=== PATIENT | male | born 1950 | race Caucasian/White ===

== ENCOUNTER 2019-03-08 09:00 | Outpatient (REF) | payer MEDICARE, SELFPAY ==
[2019-03-08 19:59] LABS: Anion Gap 7.5 mmol/L (3-11); BUN 12 mg/dL (7-18); CO2 29.5 mmol/L (21.0-32.0); CREATININE 0.96 mg/dL (0.70-1.30); Calcium 9.3 mg/dL (8.5-10.1); Chloride 105 mmol/L (98-107); Cholesterol 192 mg/dL (50-200); Glucose 109 mg/dL (70-100); HDL Cholesterol 66 mg/dL (40-60); LDL CHOLESTEROL 116 mg/dL (<100); Sodium 142 mmol/L (136-145); Triglyceride 51 mg/dL (30-150)
[2019-03-10 10:01] LABS: PSA, Screening 1.3 ng/ml (0-4.5)
== END 2019-03-08 09:20 ==
LOC: NCHCN 09:00
PROVIDERS: PCP Nurse Practitioner Family; Visit Provider Nurse Practitioner Family
DX: I10 Essential (primary) hypertension (principal); I48.0 Paroxysmal atrial fibrillation; K21.9 Gastro-esophageal reflux disease without esophagitis; G47.30 Sleep apnea, unspecified; G47.00 Insomnia, unspecified; R73.01 Impaired fasting glucose; N40.0 Benign prostatic hyperplasia without lower urinary tract symptoms; Z12.5 Encounter for screening for malignant neoplasm of prostate
CPT/HCPCS: 80048; 80061; 83721; 84153

== ENCOUNTER 2019-10-03 10:25 | Outpatient (CLI) | payer MEDICARE, SELFPAY | END 2019-10-03 10:45 | PROVIDERS: PCP Nurse Practitioner Family; Visit Provider Internal Medicine Cardiovascular Disease | DX: I48.91 Unspecified atrial fibrillation (principal); Z79.01 Long term (current) use of anticoagulants | CPT/HCPCS: 99204; 99215; 93005; 93010 ==

== ENCOUNTER 2020-07-28 01:24 | Emergency (ER) | payer MEDICARE, SELFPAY ==
[2020-07-28 01:27] VITALS: BP 144/92; PULSE 69; RESP 16; TEMP 36.6; O2SAT 98
--- NOTE | 2020-07-28 01:30 | RT.EKG_ITS ---
APPROVED REPORT Exam: Resting ECG Patient Location: E HR:67 bpm ECG Measurements Heart Rate 67 AXIS UT 219 P 51 QRSd 88 QRS 7 QT 416 T 37 QTc 439 Conclusion Sinus rhythm...normal P axis, V-rate 60- 99 Borderline prolonged UT interval...UT >212, V-rate 50- 90 Probable left atrial enlargement...P >50mS, <-0.10mV V1. Sinus. Prolonged UT interval. No STEMI. Nondiagnostic.
--- NOTE | 2020-07-28 01:30 | DI.RAD_ITS ---
EXAM: XR CHEST 2V PA LATERAL CLINICAL HISTORY: GERD symptoms. r/o acute disease TECHNIQUE: 2D digital imaging was performed. COMPARISON: No exams were available for comparison FINDINGS: MEDIASTINUM: Normal. HEART: Normal. PULMONARY VASCULATURE: Normal. LUNGS: Mildly increased interstitial markings. No focal consolidation. PLEURAL SPACE: No pleural effusion or pneumothorax. BONE:Mild degenerative disc changes. OTHER FINDINGS:Normal. IMPRESSION: No acute pulmonary findings. DATA REPOSITORY: RADIATION DOSE DELIVERED:
--- NOTE | 2020-07-28 01:49 | ED.GENADUL_ITS ---
Discharge Plan Disposition Patient Disposition: HOME Condition: Improving Discharge Details Chief Complaint: Abd Prob Clinical Impression: Nausea and vomiting Primary Care Provider: Мария Loo ED Provider: Diana Garcia Home Meds and New Rx's Prescriptions: Continued apple cider vinegar 600 mg capsule 600 mg PO DAILY PRNRF: 0 ranitidine HCl [Acid Stamping Operator (ranitidine)] 150 mg tablet 150 mg PO DAILY PRNRF: 0 metoprolol succinate 100 MG tablet extended release 24 hr 100 mg PO DAILY RF: 0 zolpidem [Ambien] 5 MG tablet 5 mg PO HS PRNRF: 0 Xarelto 20 mg tablet 20 mg PO DAILY Qty: 30 RF: 3 Discharge Instructions Instructions: Gastroesophageal Reflux Disease (ED), Acute Nausea and Vomiting (ED) Additional Instructions: Drink plenty of fluids and get plenty of rest. Take Zofran as needed and directed for nausea and vomiting. Take an [id number] acid-reducing medication such as Pepcid or Prilosec or Prevacid daily for the next 2 weeks. Avoid common trigger foods for your reflux. Follow-up with your primary care doctor in 1 week. If your symptoms persist or worsen, you could consider follow-up with general surgery for evaluation and consideration for upper endoscopy. Return to the emergency department with any worsening or new concerning symptoms. Referrals: Cheryl Kan MD [ [facility] STAFF PHYSICIAN] - Discharge Data Discharge Date/Time-TO BE ENTERED AT DEPARTURE: 07/28/20 03:45 Discharge Physician: Diana Garcia Medical Decision Making 0135 -- 70-year-old male with a history of GERD and paroxysmal A. fib on Xarelto presents with multiple episodes of vomiting after eating pork last night. Also complains of indigestion but denies chest pain, shortness of breath, abdominal pain. Patient has had multiple episodes before after eating chicken or pork. Denies sensation of food bolus impaction ED notes rate of 67, sinus with no acute ST or T wave ischemic changes. He is noted to be frequently swallowing and complaining of nausea during evaluation. He spit up clear mucus. His abdomen is soft and nontender. His lungs are clear. Appears more consistent with GI rather than cardiac etiology. Considering patient's age and history, will obtain a cardiac work-up, give a dose of Pepcid, Zofran and GI cocktail and reassess. 0330 -- Labs and imaging reviewed and unremarkable. Troponin negative. Chest x-ray negative for acute disease. Patient reassessed and he admits to significant relief. He was able to drink water and denied any symptoms and is requesting to go home. Patient given Zofran to go. Advised to follow up with the primary care doctor for re-evaluation. Usual and customary return precautions given prior to discharge. Medical Records Medical records reviewed: Yes I reviewed the patient's medical records. Imaging Data Radiologic Study: Radiologist's impression: XR Chest, 2 Views Exam date and time: 07/28/2020 2:44 AM Age: 70 years old Clinical indication: Other: Gerd symptoms; Additional info: R/O acute disease TECHNIQUE: Imaging protocol: XR of the chest Views: 2 views. COMPARISON: No relevant prior studies available. FINDINGS: Lungs: Chronic appearing interstitial prominence. No consolidation. Pleural space: No pleural effusion. No pneumothorax. Heart/Mediastinum: No cardiomegaly. Bones/joints: Unremarkable. IMPRESSION: No radiographic evidence for pneumonia Presumed chronic interstitial prominence bilaterally. Comparison with prior images would be helpful Lab Data Lab results reviewed: Yes I reviewed the patient's lab results. Labs: Laboratory Tests Range/Units 07/28/20 07/28/20 01:45 01:45 WBC (4.4-10.8) 10^3/uL 9.70 RBC (4.36-5.78) 10^6/uL 5.18 Hgb (13.5-17.5) g/dL 15.2 Hct (40.0-50.0) % 45.3 MCV (80-95) fL 87.5 MCH (27.0-33.0) pg 29.3 MCHC (32.0-36.0) % 33.6 RDW (11.8-14.1) % 12.8 Plt Count (130-400) 10^3/uL 166 MPV (8.0-11.0) fL 10.8 Immature Gran % 0.2 Neutrophils % 72.4 Lymphocytes % 19.3 Monocytes % 7.5 Eosinophils % 0.4 Basophils % 0.2 Nucleated RBC % % 0 Absolute Neutrophils (1.2-6.7) 10^3/uL 7.02 H Absolute Lymphocytes (1.2-3.4) 10^3/uL 1.87 Absolute Monocytes (0.1-0.8) 10^3/uL 0.73 Absolute Eosinophils (0.0-0.7) 10^3/uL 0.04 Absolute Basophils (0.0-0.2) 10^3/uL 0.02 Sodium (136-145) mmol/L 141 Potassium (3.5-5.1) mmol/L 3.9 Chloride (98-107) mmol/L 104 Carbon Dioxide (21.0-32.0) mmol/L 27.8 Anion Gap (3-11) mmol/L 9.2 BUN (7-18) mg/dL 17 Creatinine (0.70-1.30) mg/dL 1.33 H Estimated GFR/1.73 m2 (mL/min/1.73m2) 53.16 Glucose (74-106) mg/dL 121 H Calcium (8.5-10.1) mg/dL 9.4 Magnesium (1.8-2.4) mg/dL 2.0 Total Bilirubin (0.2-1.0) mg/dL 1.0 AST (15-37) U/L 54 H ALT (16-63) U/L 31 Alkaline Phosphatase (46-116) U/L 68 Troponin I (<0.06) ng/mL < 0.05 Total Protein (6.4-8.2) g/dL 7.7 Albumin (3.4-5.0) g/dL 4.2 Lipase (73-393) U/L 79 ECG Data Attestation: I personally reviewed and interpreted this ECG (s) as follows: Interpretation: rate of 67, sinus. no acute ST elevation or depression. OK 219. QRS 88. QTc 439. HPI General Mode of arrival: ambulatory . Date/Time Provider Initiated Documentation: 07/28/20 01:25 . Limitations to Documentation: no limitations . Information obtained by: patient . HPI Narrative: Patient is a 70-year-old male with a history of chronic GERD and atrial fibrillation on Xarelto who presents with multiple episodes of vomiting and feeling of gas and indigestion since eating pork at 8 PM last night. Patient states his vomit was initially food and now is mainly clear and white spit up. He states he has been unable to keep down liquids or food since this started as he feels like when he tries to swallow water it comes right back up. He still admits to nausea but denies any chest pain, shortness of breath, abdominal pain, fever, cough. He denies any sensation of food being stuck in his throat. He states he usually develops this nausea and indigestion feeling sometimes associated with vomiting after eating pork or chicken. Related Data Home Medications Medication Instructions Recorded Confirmed metoprolol succinate 100 mg PO DAILY tab-cap 02/15/17 07/28/20 zolpidem [Ambien] 5 mg PO HS PRN 03/31/17 07/28/20 apple cider vinegar 600 mg capsule 600 mg PO DAILY PRN 10/03/19 07/28/20 ranitidine HCl 150 mg tablet 150 mg PO DAILY PRN 10/03/19 07/28/20 rivaroxaban 20 mg tablet 20 mg PO DAILY #30 tab 01/15/20 07/28/20 Previous Rx's Medication Instructions Recorded rivaroxaban 20 mg tablet 20 mg PO DAILY #30 tab 01/15/20 Allergies Allergy/AdvReac Type Severity Reaction Status Date / Time No Known Allergies Allergy Verified 10/03/19 10:23 General Stated Complaint: Abd Prob HARRIETT: 3 Review of Systems All systems reviewed & are unremarkable except as noted in HPI and below Constitutional Constitutional: Reports as per HPI, Denies chills and Denies fever(s) Eyes Eyes: Denies blurry vision ENT Ears, Nose, Mouth, and Throat: Denies dizziness, Denies sore throat and Denies throat swelling Cardiovascular Cardiovascular: Denies chest pain and Denies dyspnea Respiratory Respiratory: Denies cough and Denies dyspnea Gastrointestinal Gastrointestinal: Denies abdominal pain, Denies diarrhea and Reports vomiting Genitourinary Genitourinary: Denies hematuria and Denies dysuria Musculoskeletal Musculoskeletal: Denies back pain and Denies numbness Integumentary/Breasts Skin/Breast: Denies lesions and Denies rash Neurologic Neurologic: Denies dizziness, Denies localized weakness and Denies numbness Allergic/Immunologic Allergic/Immunologic: Denies throat swelling [facility] Medical History (Updated 07/28/20 @ 03:28 by Diana Garcia DO) Atrial fibrillation (Chronic) GERD (gastroesophageal reflux disease) (Chronic) Paroxysmal atrial fibrillation (Acute) Surgical History H/O inguinal hernia repair (Acute) Social History Smoking/Tobacco Use Status: Never Alcohol Intake: current Alcohol Intake frequency: a few times a week Alcohol type: beer and wine Drug use: Never What type of physical activity do you participate in: walking Duration: 30-45 minutes/day Frequency: 1-2 times per week Do you feel safe at home: Yes Do you feel safe in your relationship?: Yes Exam Const General: cooperative and no acute distress Orientation: alert, awake and oriented x3 HENMT Head: normal to inspection Face and sinus: normal facial exam Eyes General: appearance normal, both eyes and all related structures EOM: EOM intact bilaterally Neck Neck: normal visual inspection and No submandibular swelling Lymphatic: no lymphadenopathy noted Chest Chest: normal inspection of the chest and no tenderness Resp Effort & Inspection: normal respiratory effort, able to speak in complete sentences and other Auscultation: clear to auscultation bilaterally Cardio Rate: regular rate Rhythm: regular rhythm GI Inspection: normal to inspection and other (Continual swallowing noted, occasional spit up of clear mucus) Palpation: soft, not firm, not rigid and nontender Auscultation: normal bowel sounds Skin General skin exam: no rashes or lesions noted Neuro General: patient alert, patient awake and patient oriented x3 Cognition: normal cognition Speech: speech normal Motor: muscle tone normal throughout Sensory Exam: no sensory deficits noted Extrem General: normal to inspection, full ROM, capillary refill normal, no calf t enderness bilaterally and no edema Psych Appearance: grossly normal Mental Status: mental status grossly normal Speech and Movement: speech and movement normal Affect: normal affect Course Vital Signs Vital signs: Vital Signs Temperature 97.9 F 07/28/20 01:27 Pulse 69 07/28/20 01:27 Respiratory Rate 16 07/28/20 01:27 Blood Pressure 144/92 H 07/28/20 01:27 Pulse Oximetry 98 07/28/20 01:27 Temperature 97.9 F 07/28/20 01:27 Temperature Source Skin 07/28/20 01:27 Pulse 69 07/28/20 01:27 Respiratory Rate 16 07/28/20 01:27 Respiratory Effort 07/28/20 01:34 Blood Pressure 144/92 H 07/28/20 01:27 Blood Pressure Position Sitting 07/28/20 01:27 Pulse Oximetry 98 07/28/20 01:27 Oxygen Delivery Method Room Air 07/28/20 01:27 Oxygen Flow Rate 0 07/28/20 01:27 Pain Level 5 07/28/20 01:27 Comment 07/28/20 01:27
[2020-07-28] MEDS: FAMOTIDINE 20 MG/50 ML BAG 200 MG IVPB (02:01)
[2020-07-28] MEDS: Normal Saline 500 ML IV (02:01)
[2020-07-28] MEDS: Ondansetron 4 MG/2 ML VIAL IVP (02:01)
[2020-07-28 02:05] LABS: Abs Immature Grans 0.02 10^3/uL (0.0-0.06); Absolute Basophil Count 0.02 10^3/uL (0.0-0.2); Absolute Eosinophil Count 0.04 10^3/uL (0.0-0.7); Absolute Lymphocyte Count 1.87 10^3/uL (1.2-3.4); Absolute Monocyte Count 0.73 10^3/uL (0.1-0.8); Absolute Neutrophil Count 7.02 10^3/uL (1.2-6.7); Basophils % 0.2; Eosinophils % 0.4; HCT 45.3 % (40.0-50.0); HGB 15.2 g/dL (13.5-17.5); Immature Grans % 0.2; Lymphocytes % 19.3; MCH 29.3 pg (27.0-33.0); MCHC 33.6 % (32.0-36.0); MCV 87.5 fL (80-95); MPV 10.8 fL (8.0-11.0); Monocytes % 7.5; Neutrophils % 72.4; Nucleated RBC 0 %; Platelet Count 166 10^3/uL (130-400); RBC 5.18 10^6/uL (4.36-5.78); RDW 12.8 % (11.8-14.1); RDW-SD 41.5 fL
[2020-07-28 02:18] LABS: ALT 31 U/L (16-63); AST 54 U/L (15-37); Albumin 4.2 g/dL (3.4-5.0); Alkaline Phosphatase 68 U/L (46-116); Anion Gap 9.2 mmol/L (3-11); BUN 17 mg/dL (7-18); CO2 27.8 mmol/L (21.0-32.0); CREATININE 1.33 mg/dL (0.70-1.30); Calcium 9.4 mg/dL (8.5-10.1); Chloride 104 mmol/L (98-107); Estimated GFR 53.16 (mL/min/1.73m2); Glucose 121 mg/dL (74-106); Lipase 79 U/L (73-393); Potassium 3.9 mmol/L (3.5-5.1); Sodium 141 mmol/L (136-145); Total Protein 7.7 g/dL (6.4-8.2)
[2020-07-28 02:24] LABS: Troponin I < 0.05 ng/mL (<0.06)
--- NOTE | 2020-07-28 02:27 | NUR.NOTE ---
Steff PO fluids. med with GI cocktail a/o.
--- NOTE | 2020-07-28 02:54 | DI.VRAD_ITS ---
PROCEDURE INFORMATION: Exam: XR Chest, 2 Views Exam date and time: 07/28/2020 2:44 AM Age: 70 years old Clinical indication: Other: Gerd symptoms; Additional info: R/O acute disease TECHNIQUE: Imaging protocol: XR of the chest Views: 2 views. COMPARISON: No relevant prior studies available. FINDINGS: Lungs: Chronic appearing interstitial prominence. No consolidation. Pleural space: No pleural effusion. No pneumothorax. Heart/Mediastinum: No cardiomegaly. Bones/joints: Unremarkable. IMPRESSION: No radiographic evidence for pneumonia Presumed chronic interstitial prominence bilaterally. Comparison with prior images would be helpful Dictated and Authenticated by: Blue Nevarez MD. Ordering:GERMÁN Ortiz MD
[2020-07-28] MEDS: Ondansetron O.D.T. 4 MG TABEF, 3 TABS/BTL PO (03:46)
[2020-07-28 03:47] VITALS: BP 112/66; PULSE 58; RESP 16; TEMP 36.7; O2SAT 96
== END 2020-07-28 03:45 | disposition home or self-care (01) ==
PROVIDERS: Emergency Provider Physician Assistant; PCP Nurse Practitioner Family
DX: R11.2 Nausea with vomiting, unspecified (principal); K21.9 Gastro-esophageal reflux disease without esophagitis
CPT/HCPCS: 36415; 80053; 83690; 93005; 96361; 96365; 96375; 99285; 71046; 83735; 84484; 85025; 93010; J2405

== ENCOUNTER → 2020-09-03 11:30 | Outpatient (BNVA) | payer MEDICARE, SELFPAY | PROVIDERS: PCP Nurse Practitioner Family; Referring Provider Nurse Practitioner Family; Visit Provider Internal Medicine Cardiovascular Disease | DX: I48.0 Paroxysmal atrial fibrillation (principal); Z01.810 Encounter for preprocedural cardiovascular examination; Z79.01 Long term (current) use of anticoagulants | CPT/HCPCS: 99214 ==

== ENCOUNTER 2021-03-12 22:46 | Outpatient (REF) | payer MEDICARE, SELFPAY ==
[2021-03-12 15:24] LABS: HCT 44.4 % (40.0-50.0); HGB 14.8 g/dL (13.5-17.5); MCH 29.8 pg (27.0-33.0); MCHC 33.3 % (32.0-36.0); MCV 89.5 fL (80-95); MPV 11.7 fL (8.0-11.0); Platelet Count 147 10^3/uL (130-400); RBC 4.96 10^6/uL (4.36-5.78); RDW 13.2 % (11.8-14.1); RDW-SD 43.4 fL; WBC 5.16 10^3/uL (4.4-10.8)
[2021-03-12 16:20] LABS: Anion Gap 8.7 mmol/L (3-11); BUN 15 mg/dL (7-18); CO2 28.3 mmol/L (21.0-32.0); CREATININE 1.3 mg/dL (0.70-1.30); Calcium 9.4 mg/dL (8.5-10.1); Calculated LDL 88 mg/dL (<100); Chloride 107 mmol/L (98-107); Cholesterol 167 mg/dL (<200); Estimated GFR 54.42 (mL/min/1.73m2); Glucose 123 mg/dL (74-106); HDL Cholesterol 67 mg/dL (40-60); Potassium 5.3 mmol/L (3.5-5.1); Sodium 144 mmol/L (136-145); Triglyceride 60 mg/dL (<150)
[2021-03-12 22:38] LABS: PSA, Screening 1.9 ng/mL (0.0-6.5)
== END 2021-03-12 22:47 | disposition home or self-care (01) ==
LOC: NCHCN 22:46
PROVIDERS: PCP Nurse Practitioner Family; Visit Provider Nurse Practitioner Family
DX: I10 Essential (primary) hypertension (principal); I48.0 Paroxysmal atrial fibrillation; Z79.01 Long term (current) use of anticoagulants; R73.01 Impaired fasting glucose; N40.0 Benign prostatic hyperplasia without lower urinary tract symptoms; Z12.5 Encounter for screening for malignant neoplasm of prostate
CPT/HCPCS: 80048; 80061; 84153; 85027

== ENCOUNTER → 2021-10-10 10:25 | Outpatient (BNVA) | payer MEDICARE, SELFPAY | PROVIDERS: PCP Nurse Practitioner Family; Referring Provider Nurse Practitioner Family; Visit Provider Internal Medicine Cardiovascular Disease | DX: I48.0 Paroxysmal atrial fibrillation (principal); Z79.01 Long term (current) use of anticoagulants | CPT/HCPCS: 99213 ==

== ENCOUNTER 2021-10-30 02:13 | Outpatient (CLI) | payer MEDICARE, SELFPAY ==
--- NOTE | 2021-10-30 | DI.US_ITS ---
Exam(s) US RENAL EXAM: US RENAL CLINICAL HISTORY: INCONTINENCE OF URINE N39.41 URINARY FREQUENCY R35.0 R/O STRUCTURAL TECHNIQUE: Ultrasound of both kidneys performed using standard protocol. COMPARISON: No exams were available for comparison FINDINGS: RIGHT KIDNEY: Measures 11.8 cm in length. No cysts evident. Normal cortical thickness and corticomedullary differen tiation .No solid masses There is a small hyperechoic focus measuring 3 millimeters in the lower pole, possibly calculus. LEFT KIDNEY: Measures 11.3 cm in length. Is a 1.0 x 1.2 cm cyst towards the lower pole. Normal cortical thicknes s and corticomedullary differentiaion. No solids masses. No intrarenal calculi nor hydonephrosis. URINARY BLADDER: Prevoid volume is 112 cc Postvoid volume is 8 cc No evidence of bladder mass nor diverticuli. Ureterovesical jets: Both identified and appear symmetrical IMPRESSION: 1. Possible nonobstructive 3 millimeter calculus in lower pole of the right kidney. No hydronephros is on either side 2. Small benign cyst in the left kidney measuring 1.2 cm. No solid renal masses. Bladder findings as above. DATA REPOSITORY:
== END 2021-10-30 02:33 ==
PROVIDERS: PCP Nurse Practitioner Family; Visit Provider Nurse Practitioner Family
DX: N39.41 Urge incontinence (principal); R35.0 Frequency of micturition; N28.1 Cyst of kidney, acquired; N20.0 Calculus of kidney
CPT/HCPCS: 76770

== ENCOUNTER → 2021-11-27 10:32 | Outpatient (BNVA) | payer MEDICARE, SELFPAY | PROVIDERS: PCP Nurse Practitioner Family; Referring Provider Nurse Practitioner Family; Visit Provider Nurse Practitioner Gerontology | DX: N32.81 Overactive bladder (principal); I10 Essential (primary) hypertension | CPT/HCPCS: 99214 ==

== ENCOUNTER → 2022-01-22 15:03 | Outpatient (BNVA) | payer MEDICARE, SELFPAY | PROVIDERS: PCP Nurse Practitioner Family; Referring Provider Nurse Practitioner Family; Visit Provider Nurse Practitioner Gerontology | DX: R35.0 Frequency of micturition (principal) | CPT/HCPCS: 99214 ==

== ENCOUNTER → 2022-02-26 14:39 | Outpatient (BNVA) | payer MEDICARE, SELFPAY | PROVIDERS: PCP Nurse Practitioner Family; Referring Provider Nurse Practitioner Family; Visit Provider Nurse Practitioner Gerontology | DX: R35.0 Frequency of micturition (principal) | CPT/HCPCS: 51798; 99214 ==

== ENCOUNTER 2022-04-30 02:15 | Outpatient (CLI) | payer MEDICARE, SELFPAY ==
[2022-04-30 08:39] LABS: ALT 41 U/L (16-63); AST 58 U/L (15-37); Albumin 3.8 g/dL (3.4-5.0); Alkaline Phosphatase 70 U/L (46-116); Anion Gap 8.2 mmol/L (3-11); BUN 16 mg/dL (7-18); Bilirubin, Total 0.8 mg/dL (0.2-1.0); CO2 28.8 mmol/L (21.0-32.0); CREATININE 1.2 mg/dL (0.70-1.30); Calcium 8.6 mg/dL (8.5-10.1); Calculated LDL 95 mg/dL (<100); Chloride 104 mmol/L (98-107); Cholesterol 170 mg/dL (<200); Estimated GFR 59.51 (mL/min/1.73m2); Glucose 112 mg/dL (74-106); HDL Cholesterol 64 mg/dL (40-60); Potassium 4.7 mmol/L (3.5-5.1); Sodium 141 mmol/L (136-145); Total Protein 7.2 g/dL (6.4-8.2); Triglyceride 57 mg/dL (<150)
[2022-04-30 18:21] LABS: PSA, Screening 1.8 ng/mL (<=6.5)
== END 2022-04-30 02:16 | disposition home or self-care (01) ==
LOC: LBO 02:15
PROVIDERS: PCP Nurse Practitioner Family; Visit Provider Nurse Practitioner Family
DX: R73.03 Prediabetes (principal); I48.0 Paroxysmal atrial fibrillation; I10 Essential (primary) hypertension; Z12.5 Encounter for screening for malignant neoplasm of prostate; Z80.42 Family history of malignant neoplasm of prostate; R35.0 Frequency of micturition; Z79.01 Long term (current) use of anticoagulants
CPT/HCPCS: 36415; 80053; 80061; 84153

== ENCOUNTER → 2022-07-16 14:50 | Outpatient (BNVA) | payer MEDICARE, SELFPAY | PROVIDERS: PCP Nurse Practitioner Family; Referring Provider Nurse Practitioner Family; Visit Provider Nurse Practitioner Gerontology | DX: R35.0 Frequency of micturition (principal) | CPT/HCPCS: 51798; 99214 ==

== ENCOUNTER 2022-12-31 01:11 | Outpatient (CLI) | payer MEDICARE, SELFPAY ==
--- NOTE | 2022-12-31 | DI.US_ITS ---
Exam(s) US ABDOMEN LIMITED EXAM: US ABDOMEN LIMITED CLINICAL HISTORY: RUQ ABD PAIN, R10.11,DULL ACHE TECHNIQUE: Ultrasound abdomen performed using standard protocol. COMPARISON: US US RENAL from 10/30/2021 FINDINGS: There is no ascites evident. LIVER: There is a benign-appearing small 1.1 x 0.8 x 0.9 cm cyst evident in the right hepatic lobe. No solid liver masses. No obvious steatosis. GALLBLADDER/BILIARY: There are no gallstones. No gallbladder wall edema nor pericholecystic fluid. The common hepatic duct isdifficult to assess because of bowel gas in this region. May be slightly d ilated. PANCREAS: There is no evidence of pancreatic mass nor dilatation of the pancreatic duct. RIGHT KIDNEY:No cyst or solid mass. There is a small 3 millimeter echogenic focus in the inferior po le which may be nonobstructive small calculus at this level. IMPRESSION: 1. No evidence of a cholelithiasis. Common hepatic duct is somewhat difficult to evaluate here colleen use of bowel gas. 2. Small 11 millimeter benign cyst in the right hepatic lobe. No other focal hepatic findings. 3. Small 3 millimeter nonobstructive calculus in the inferior pole of right kidney DATA REPOSITORY:
== END 2022-12-31 01:31 ==
LOC: DI 01:12
PROVIDERS: PCP Nurse Practitioner Family; Visit Provider Nurse Practitioner Family
DX: K76.9 Liver disease, unspecified (principal); N20.0 Calculus of kidney
CPT/HCPCS: 76705

== ENCOUNTER → 2023-02-11 14:18 | Outpatient (BNVA) | payer MEDICARE, SELFPAY | PROVIDERS: PCP Nurse Practitioner Family; Visit Provider Nurse Practitioner Gerontology | DX: R35.0 Frequency of micturition (principal) | CPT/HCPCS: 51798; 99213 ==

== ENCOUNTER 2023-04-15 09:45 | Outpatient (REF) | payer MEDICARE, SELFPAY ==
[2023-04-15 15:05] LABS: HCT 43.6 % (40.0-50.0); HGB 14.7 g/dL (13.5-17.5); MCH 29.9 pg (27.0-33.0); MCHC 33.7 % (32.0-36.0); MCV 89 fL (80-95); MPV 11.4 fL (8.0-11.0); Platelet Count 130 10^3/uL (130-400); RBC 4.91 10^6/uL (4.36-5.78); RDW-SD 42.4 fL; WBC 4.16 10^3/uL (4.4-10.8)
[2023-04-15 15:33] LABS: ALT 51 U/L (16-63); AST 62 U/L (15-37); Albumin 3.7 g/dL (3.4-5.0); Alkaline Phosphatase 71 U/L (46-116); Anion Gap 4.2 mmol/L (3-11); BUN 12 mg/dL (7-18); Bilirubin, Total 0.8 mg/dL (0.2-1.0); CO2 29.8 mmol/L (21.0-32.0); CREATININE 0.9 mg/dL (0.70-1.30); Chloride 107 mmol/L (98-107); Estimated GFR 90.18 (mL/min/1.73m2); Glucose 115 mg/dL (74-106); HDL Cholesterol 70 mg/dL (40-60); LDL CHOLESTEROL 101 mg/dL (<100); Potassium 4.6 mmol/L (3.5-5.1); Sodium 141 mmol/L (136-145); Total Protein 7.3 g/dL (6.4-8.2)
[2023-04-15 15:47] LABS: Creatine Kinase 104 U/L (39-308)
[2023-04-15 16:05] LABS: Hemoglobin A1C 5.9 % (<5.7)
== END 2023-04-15 09:46 | disposition home or self-care (01) ==
LOC: NCHCN 09:45
PROVIDERS: PCP Nurse Practitioner Family; Visit Provider Nurse Practitioner Family
DX: I10 Essential (primary) hypertension (principal); R73.03 Prediabetes; R79.89 Other specified abnormal findings of blood chemistry
CPT/HCPCS: 80053; 82550; 83721; 85027; 83036; 83718

== ENCOUNTER → 2024-02-10 13:44 | Outpatient (BNVA) | payer MEDICARE, SELFPAY | PROVIDERS: PCP Nurse Practitioner Family; Referring Provider Nurse Practitioner Family; Visit Provider Nurse Practitioner Gerontology | DX: R35.0 Frequency of micturition (principal) | CPT/HCPCS: 51798; 99213 ==

== ENCOUNTER 2024-06-23 19:17 | Outpatient (REF) | payer MEDICARE, SELFPAY ==
[2024-06-23 16:49] LABS: HCT 44.5 % (40.0-50.0); HGB 14.8 g/dL (13.5-17.5); MCH 30.2 pg (27.0-33.0); MCHC 33.3 % (32.0-36.0); MCV 91 fL (80-95); Platelet Count 141 10^3/uL (130-400); RDW-SD 42.9 fL
[2024-06-23 17:36] LABS: TSH (W/Ref FT4) 0.92 uIU/mL (0.36-3.74); Vitamin B12 292 pg/mL (193-986)
[2024-06-23 17:46] LABS: Hemoglobin A1C 5.8 % (<5.7)
[2024-06-26 09:38] LABS: PSA, Diagnostic 2.1 ng/mL (<=6.5)
== END 2024-06-23 19:18 | disposition home or self-care (01) ==
LOC: NCHCN 19:17
PROVIDERS: PCP Nurse Practitioner Family; Visit Provider Nurse Practitioner Family
DX: R73.03 Prediabetes (principal); I48.91 Unspecified atrial fibrillation; I10 Essential (primary) hypertension; K21.9 Gastro-esophageal reflux disease without esophagitis; Z79.899 Other long term (current) drug therapy; R35.0 Frequency of micturition
CPT/HCPCS: 85027; 82607; 83036; 83735; 84153; 84443

== ENCOUNTER 2025-03-09 09:43 | Outpatient (CLI) | payer MEDICARE, SELFPAY ==
--- NOTE | 2025-03-09 09:45 | RT.EKG_ITS ---
APPROVED REPORT Exam: Resting ECG Reason for Exam: follow up Patient Location: O HR:80 bpm ECG Measurements Heart Rate 80 AXIS TX [id number] P [id number] QRSd 88 QRS 4 QT 390 T 19 QTc 450 Conclusion Atrial fibrillation...V-rate 59- 93, irreg A-activity
== END 2025-03-09 09:44 | disposition home or self-care (01) ==
LOC: DI.CARD 09:54
PROVIDERS: PCP Nurse Practitioner Family; Referring Provider Nurse Practitioner Family; Visit Provider Internal Medicine Cardiovascular Disease
DX: I48.91 Unspecified atrial fibrillation (principal)
CPT/HCPCS: 93010

== ENCOUNTER → 2025-03-09 09:43 | Outpatient (BNVA) | payer MEDICARE, SELFPAY | PROVIDERS: PCP Nurse Practitioner Family; Referring Provider Nurse Practitioner Family; Visit Provider Internal Medicine Cardiovascular Disease | DX: I48.19 Other persistent atrial fibrillation (principal) | CPT/HCPCS: 93005; 99214 ==

== ENCOUNTER 2025-04-13 00:21 | Outpatient (CLI) | payer MEDICARE, SELFPAY ==
--- NOTE | 2025-04-13 07:00 | DI.US_ITS ---
APPROVED REPORT EXAM: Comprehensive 2D, Doppler, and color-flow Echocardiogram Patient Location: Out-Patient Direct Care Provider: Fior Pinzon RDCS (AE) Indications: Atrial fibrillation, Check LV funciton Other Information Study Quality: Adequate Conclusion Normal left ventricular wall thickness and chamber size. Ejection fraction is 60%. Wall motion is n ormal Normal right ventricular size and function Both atria are moderately enlarged There are no structural valvular abnormalities Moderate mitral regurgitation Mild tricuspid regurgitation with normal right ventricular systolic pressure Wall motion Left Ventricle The left ventricle is normal size. The left ventricular systolic function is normal. The left ventric ular ejection fraction is within the normal range. There is normal left ventricular wall thickness. T here is normal LV segmental wall motion. There is no ventricular septal defect visualized. LVEF is 60 %. Right Ventricle The right ventricle is normal size. The right ventricular systolic function is normal. Atria Left atrium is moderately dilated. Right atrium is moderately dilated. The interatrial septum is inta ct with no evidence for an atrial septal defect. Aortic Valve The aortic valve is normal in structure. Aortic valve is trileaflet. There is no aortic valvular sten osis. No aortic regurgitation is present. Mitral Valve The mitral valve is normal in structure. No evidence of mitral valve stenosis. Mioderate mitral reg urgitation. Tricuspid Valve The tricuspid valve is normal in structure. There is no tricuspid valve stenosis. Mild tricuspid regu rgitation. The RVSP is 26.2_ mmHg. Pulmonic Valve The pulmonary valve is normal in structure. There is no pulmonic valvular stenosis. Trace pulmonic re gurgitation. Great Vessels The aortic root is normal in size. The ascending aorta is normal in size. Aortic arch is normal in ca liber. IVC is normal in size and collapses >50% with inspiration. Pericardium There is no pericardial effusion. 2D Dimensions IVSD d PLAX 1.02 cm M: 0.6-1.2 Ao Root d 3.36 cm M: 3.1 - 3.7 LVPW d PLAX 1.00 cm M: 0.6 - 1.2 Ao Asc Diam d 3.09 cm M: 2.6 - 3.4 LVID d PLAX 4.50 cm M: 4.2 - 5.8 LVDs 3.11 cm M: 2.5 - 4.0 LV EF Teichholz 57.7 % FS 30.21 % LV EDV (Teich) 90.3 mL LV ESV (Teich) 38.2 mL M-Mode TAPSE 1.60 cm (M/F) >1.7 Auto EF LV EDV A4C 134.0 mL LV EDV A2C 123.2 mL LV EDV BP 129.0 mL LV ESV A4C 58.3 mL LV ESV A2C 56.0 mL LV ESV BP 57.3 mL LVEF(%) A4C 56.5 % LVEF(%) A2C 54.6 % LVEF(%) BP 55.6 % LV SV A4C 75.7 ml LV SV A2C 67.3 ml LV SV BP 71.7 ml LV CO A4C 5.5 L/min LV CO A2C 5.3 L/min LV CO BP 5.4 L/min HR A4C 72.14 BPM HR A2C 79.29 BPM LV EDV Index (BP) LA Volume LA Length A4C 6.6 cm LA Length A2C 6.9 cm LA Area A4C s 26.43 cm2 LA Area A2C s 27.63 cm2 LA Vol A4C A-L 90.13 mL LA Vol A2C A-L 93.46 mL LA Vol Biplane A-L 94.2 mL LA Vol/BSA A4C A-L LA Vol/BSA A2C A-L LA Vol/BSA BP A-L 45.1 mL/m2 LA Vol A4C MOD 84.1 mL LA Vol A2C MOD 89.5 mL LA Vol BP MOD 88.8 mL RA Volume RA Area A4C 17.2 cm2 RA ESV A4C (A-L) 40.8mL RA Vol/BSA A4C A-L RA Length A4C 6.2 cm RA ESV A4C (MOD) 38.4mL LV Diastology MV E' medial 0.079 (>0.07 m/s) MV E Vmax 1.00 (0.4-1.3 m/s) MV E/E' MED 12.71 (<14) MV A Vmax 0.35 (0.4-1.3 m/s) MV E' lateral 0.099 (>0.1 m/s) E/A Ratio 2.9 MV E/E' LAT 10.17 (<14) MV E' Average 0.089 m/s MV E/E'(average) 11.30 Aortic Valve AoV Vmax 1.09 m/s LVOT Vmax 0.78 m/s AoV Peak Grad 4.7 mmHg LVOT Peak Grad 2.4 mmHg AoV Area (Vmax) 2.34 cm2 LVOT VTI 0.186 m AoV VTI 0.258 m LVOT Mean Grad 1.3 mmHg AoV Mean Chris. 0.77 m/s LVOT SV 60.82 mL AoV Mean Grad 2.7 mmHg LVOT Diam s 2.00 cm AoV Area (VTI) 2.36 cm2 AV Regurg Peak Gr. 4.74 mmHg Velocity Ratio 0.72 Mitral Valve MV DT 122 (160-240 msec) MV Vmax TIPS 0.93 m/s MV Mean Grad 1.0 (<2mmHg) MV VTI 0.225 m Pulmonary Valve PV Vmax 0.91 (0.5-1.5 m/s) RVOT Vmax 0.52 m/s PV Peak Grad 3.3 mmHg RVOT Peak Gr. 1.1 mmHg PV Mean Chris 0.61 m/s RVOT VTI 0.124 m PV Mean Grad 1.7 mmHg RVOT Mean Gr. 0.6 mmHg Tricuspid Valve RA Pressure 3.00 mmHg TR Vmax 2.41 m/s TR Peak Grad 23.1 mmHg RVSP (TR) 26.2 mmHg
== END 2025-04-13 00:41 ==
LOC: DI 00:23
PROVIDERS: PCP Nurse Practitioner Family; Visit Provider Internal Medicine Cardiovascular Disease
DX: I48.91 Unspecified atrial fibrillation (principal); I08.1 Rheumatic disorders of both mitral and tricuspid valves
CPT/HCPCS: 93306

== ENCOUNTER → 2025-04-20 09:46 | Outpatient (BNVA) | payer MEDICARE, SELFPAY | PROVIDERS: PCP Nurse Practitioner Family; Referring Provider Nurse Practitioner Family; Visit Provider Internal Medicine Cardiovascular Disease | DX: I48.19 Other persistent atrial fibrillation (principal) | CPT/HCPCS: 99213 ==

== ENCOUNTER 2025-08-16 15:20 | Outpatient (REF) | payer MEDICARE, SELFPAY ==
[2025-08-16 18:35] LABS: HCT 44.4 % (40.0-50.0); HGB 14.7 g/dL (13.5-17.5); MCH 30.0 pg (27.0-33.0); MCHC 33.1 % (32.0-36.0); MCV 91 fL (80-95); MPV 11.6 fL (8.0-11.0); Platelet Count 134 10^3/uL (130-400); RBC 4.90 10^6/uL (4.36-5.78); RDW 13.1 % (11.8-14.1); RDW-SD 43.4 fL; WBC 4.70 10^3/uL (4.4-10.8)
[2025-08-16 19:03] LABS: Hemoglobin A1C 5.8 % (<5.7)
[2025-08-16 19:15] LABS: ALT 39 U/L (16-63); AST 64 U/L (15-37); Albumin 4.0 g/dL (3.4-5.0); Alkaline Phosphatase 86 U/L (46-116); Anion Gap 8.7 mmol/L (3-11); BUN 15 mg/dL (7-18); Bilirubin, Total 1.0 mg/dL (0.2-1.0); CO2 28.3 mmol/L (21.0-32.0); Calcium 9.1 mg/dL (8.5-10.1); Chloride 105 mmol/L (98-107); Estimated GFR 78.49 (mL/min/1.73m2); Glucose 107 mg/dL (74-106); Potassium 4.9 mmol/L (3.5-5.1); Sodium 142 mmol/L (136-145); Total Protein 7.1 g/dL (6.4-8.2)
[2025-08-17 17:39] LABS: PSA, Screening 2.3 ng/mL (<=6.5)
== END 2025-08-16 15:21 | disposition home or self-care (01) ==
LOC: NCHCN 15:20
PROVIDERS: PCP Nurse Practitioner Family; Visit Provider Nurse Practitioner Family
DX: R73.03 Prediabetes (principal); Z80.42 Family history of malignant neoplasm of prostate; R74.8 Abnormal levels of other serum enzymes
CPT/HCPCS: 80053; 84153; 85027; 83036